=== PATIENT | male | born 1960 | race Caucasian/White ===

== ENCOUNTER 2021-11-04 07:27 | Outpatient (REF) | payer MEDICARE, SELFPAY ==
[2021-11-04 11:47] LABS: Alanine Aminotransferase 25 U/L (0-40); Albumin Level 4.3 g/dL (3.5-5.0); Alkaline Phosphatase 58 U/L (39-117); Aspartate Amino Transferase 20 U/L (5-37); Bilirubin Direct 0.3 mg/dL (0.0-0.5); Bilirubin Total 0.8 mg/dL (0.0-1.0); Cholesterol 161 mg/dL; HDL Cholesterol 54 mg/dL; LDL Cholesterol Calculated 88 mg/dl; Total Protein 6.8 g/dL (6.5-8.0); Triglycerides 98 mg/dL
== END 2021-11-04 07:28 | disposition home or self-care (01) ==
LOC: HO.WFDLDS 07:27
PROVIDERS: Visit Provider Internal Medicine
DX: E78.00 Pure hypercholesterolemia, unspecified (principal)
CPT/HCPCS: 36415; 80061; 80076

== ENCOUNTER 2022-06-15 07:36 | Outpatient (REF) | payer MEDICARE, SELFPAY ==
[2022-06-15 11:39] LABS: MANUAL DIFF FLAG NO
[2022-06-15 11:42] LABS: Appearance Urine Clear; Color Urine Dark Yellow; Glucose Urine UA Negative (Negative); Leukocyte Esterase Urine Negative (Negative); Nitrite Urine Negative (Negative); PH 5.5 (5.0-9.0); Specific Gravity - Urine 1.025 (1.005-1.025); Urine Blood Negative (Negative); Urine Ketones Trace mg/dL (Negative); Urine Protein Trace mg/dL (Neg-Trace)
[2022-06-15 11:56] LABS: Basophils Absolute Auto 0.1 X10*3/uL (0.0-0.2); Basophils Percent Auto 0.7 % (0-2); Eosinophils Absolute Auto 0.2 X10*3/uL (0.0-0.4); Hematocrit 47.1 % (42.0-52.0); Hemoglobin 15.3 g/dl (14.0-18.0); Imm Gran Abs Auto 0.02 X10*3/uL (0.00-0.03); Imm Gran Pct Auto 0.3 % (0.0-0.4); Lymphocytes Percent Auto 25.9 % (20-40); Mean Corpuscular HGB Conc 32.5 g/dl (31.0-36.0); Mean Corpuscular Hemoglobin 30.7 pg (27.0-33.0); Mean Corpuscular Volume 94.6 fL (80.0-98.0); Mean Platelet Volume 12.1 fL (9.4-12.4); Monocytes Absolute Auto 0.6 X10*3/uL (0.1-1.2); Monocytes Percent Auto 7.7 % (2-11); Neutrophils Absolute Auto 4.8 x10*3/uL (2.0-8.3); Neutrophils Percent Auto 63.4 % (45-73); Platelet Count 224 X10*3/uL (160-400); Red Blood Count 4.98 X10*6/uL (4.60-5.80); Red Cell Distribution Width 12.3 % (11.0-16.0); White Blood Count 7.5 X10*3/uL (4.8-10.8)
[2022-06-15 12:29] LABS: Alanine Aminotransferase 25 U/L (0-40); Albumin Level 4.2 g/dL (3.5-5.0); Alkaline Phosphatase 55 U/L (39-117); Anion Gap 10 (12-20); Aspartate Amino Transferase 20 U/L (5-37); Bilirubin Total 0.8 mg/dL (0.0-1.0); Blood Urea Nitrogen 18 mg/dL (9-16); Calcium 9.3 mg/dL (8.4-10.2); Carbon Dioxide 30 mmol/L (22-29); Chloride 104 mmol/L (96-108); Cholesterol 171 mg/dL; Estimated Glomerular Filt Rate > 60; Glucose Fasting 101 mg/dL (60-99); HDL Cholesterol 48 mg/dL; LDL Cholesterol Calculated 96 mg/dl; Potassium 4.2 mmol/L (3.3-5.1); Sodium 140 mmol/L (135-145); Total Protein 6.5 g/dL (6.5-8.0); Triglycerides 139 mg/dL
== END 2022-06-15 07:37 | disposition home or self-care (01) ==
LOC: HO.WFDLDS 07:36
PROVIDERS: Visit Provider Internal Medicine
DX: Z00.00 Encounter for general adult medical examination without abnormal findings (principal); I10 Essential (primary) hypertension; E78.00 Pure hypercholesterolemia, unspecified; Z12.5 Encounter for screening for malignant neoplasm of prostate
CPT/HCPCS: 36415; 80053; 80061; 81003; 84153; 85025

== ENCOUNTER 2022-12-30 07:19 | Outpatient (REF) | payer MEDICARE, SELFPAY ==
[2022-12-30 15:29] LABS: Alanine Aminotransferase 26 U/L (0-40); Albumin Level 4.2 g/dL (3.5-5.0); Alkaline Phosphatase 54 U/L (39-117); Aspartate Amino Transferase 23 U/L (5-37); Bilirubin Direct 0.2 mg/dL (0.0-0.5); Bilirubin Total 0.5 mg/dL (0.0-1.0); Total Protein 6.9 g/dL (6.5-8.0)
[2022-12-30 15:33] LABS: Cholesterol 161 mg/dL; HDL Cholesterol 59 mg/dL; LDL Cholesterol Calculated 85 mg/dl; Triglycerides 89 mg/dL
[2022-12-30 19:52] LABS: Reflex LDLD? No
== END 2022-12-30 07:20 | disposition home or self-care (01) ==
LOC: HO.WFDLDS 07:19
PROVIDERS: Visit Provider Internal Medicine
DX: E78.00 Pure hypercholesterolemia, unspecified (principal)
CPT/HCPCS: 36415; 80061; 80076

== ENCOUNTER 2023-07-10 07:22 | Outpatient (REF) | payer MEDICARE, SELFPAY ==
[2023-07-10 11:25] LABS: MANUAL DIFF FLAG NO
[2023-07-10 11:45] LABS: Appearance Urine Clear; Color Urine Yellow; Glucose Urine UA Negative (Negative); Leukocyte Esterase Urine Negative (Negative); Nitrite Urine Negative (Negative); PH 6.5 (5.0-9.0); Specific Gravity - Urine 1.025 (1.005-1.025); Urine Blood Negative (Negative); Urine Ketones Trace mg/dL (Negative); Urine Protein Trace mg/dL (Neg-Trace)
[2023-07-10 11:51] LABS: Bacteria Urine None Seen (None Seen); Hyaline Casts Urine 0-2 /LPF (0-2); RBC Urine 0-2 /HPF (0-2); Squamous Epithelial Cell Urine 0-2 /HPF (0-2); WBC Urine 0-5 /HPF (0-5)
[2023-07-10 12:03] LABS: Basophils Percent Auto 0.6 % (0-2); Eosinophils Absolute Auto 0.1 X10*3/uL (0.0-0.4); Eosinophils Percent Auto 2.2 % (0-4); Hematocrit 43.9 % (42.0-52.0); Imm Gran Abs Auto 0.01 X10*3/uL (0.00-0.03); Imm Gran Pct Auto 0.2 % (0.0-0.4); Lymphocytes Absolute Auto 1.7 X10*3/uL (1.2-4.9); Lymphocytes Percent Auto 26.6 % (20-40); Mean Corpuscular HGB Conc 34.2 g/dl (31.0-36.0); Mean Corpuscular Hemoglobin 31.8 pg (27.0-33.0); Mean Platelet Volume 11.9 fL (9.4-12.4); Monocytes Absolute Auto 0.5 X10*3/uL (0.1-1.2); Monocytes Percent Auto 8.1 % (2-11); Neutrophils Absolute Auto 3.9 x10*3/uL (2.0-8.3); Neutrophils Percent Auto 62.3 % (45-73); Platelet Count 210 X10*3/uL (160-400); Red Blood Count 4.72 X10*6/uL (4.60-5.80); Red Cell Distribution Width 12.3 % (11.0-16.0); White Blood Count 6.3 X10*3/uL (4.8-10.8)
[2023-07-10 12:39] LABS: Alanine Aminotransferase 24 U/L (0-40); Albumin Level 4.1 g/dL (3.5-5.0); Alkaline Phosphatase 67 U/L (39-117); Anion Gap 14 (12-20); Aspartate Amino Transferase 19 U/L (5-37); Bilirubin Total 0.6 mg/dL (0.0-1.0); Blood Urea Nitrogen 20 mg/dL (9-16); Calcium 9.2 mg/dL (8.4-10.2); Carbon Dioxide 28 mmol/L (22-29); Chloride 109 mmol/L (96-108); Cholesterol 164 mg/dL (<200); Estimated Glomerular Filt Rate > 60; Glucose Fasting 101 mg/dL (60-99); HDL Cholesterol 60 mg/dL (>40); LDL Cholesterol Calculated 83 mg/dL (<100); Potassium 3.7 mmol/L (3.3-5.1); Sodium 147 mmol/L (135-145); Total Protein 6.8 g/dL (6.5-8.0); Triglycerides 106 mg/dL (<150)
[2023-07-11 12:03] LABS: Free Prostate Spec Ag 0.2 ng/mL; Percent Free Prostate Spec Ag 29 % (calc) (>25); Prostate Specific Ag Total 0.7 ng/mL (< OR = 4.0)
== END 2023-07-10 07:23 | disposition home or self-care (01) ==
LOC: HO.WFDLDS 07:22
PROVIDERS: Visit Provider Internal Medicine
DX: Z00.00 Encounter for general adult medical examination without abnormal findings (principal); I10 Essential (primary) hypertension; E78.00 Pure hypercholesterolemia, unspecified
CPT/HCPCS: 36415; 80053; 80061; 81001; 84154; 85025

== ENCOUNTER 2024-07-18 08:29 | Outpatient (REF) | payer MEDICARE, SELFPAY ==
--- OUTSIDE RECORDS SUMMARY | 2024-07-18 08:55 | XMS_ITS ---
Author Organization Braden Leon MD Address [address] [place] [phone] Care Team Providers Care Animal Husbandry Teacher Name Role Phone Braden Leon Primary Care Provider [phone] REASON FOR VISIT yearly fasting labs Encounters Encounter Location Date Provider Diagnosis Braden Leon MD [address] [place] [phone] 07/12/2024 Braden Leon Blood tests for rout ine general physical examination Z00.00 ; Essential hypertension I10 and Pure hypercholesterolemia E78.00 Assessments Encounter Date Diagnosis (ICD Code) Assessment Notes Treatment Notes Treatment Clinical Notes Section Notes 07/12/2024 Blood tests for rout ine general physical examination (ICD-10 - Z00.00) 07/12/2024 Essential hypertensi on (ICD-10 - I10) 07/12/2024 Pure hypercholesterolemia (ICD-10 - E78.00) Plan Of Treatment Pending Test Test Name Order Date Complete Blood Count Auto Diff 5 Comprehensive [place]. Panel Fast 5 Lipid Panel 07/12/2024 PSA,Total (Free>4and<10) 07/12/2024 UA ClnCatch+Micro w/rflx Cult 07/12/2024 Next Appt Details Provider Name:Braden Medrano ier, 07/19/2024 08:00:00 AM, [address], [address], [place], [place], [phone], Progress Notes * Phillip LOERA TDOB:[birth year] (64 yo M)Acc No.[id number]:07/12/2024 Progress Note Patient:?Phillip LOERA Provider:?Braden Leon MD :1960???Age:64 Y???Sex:Male Patrick e:07/12/2024 Address:[address] [place], [place] [phone] Subjective: * Chief Complaints: * ???1. Yearly fasting labs. * Medical History:? Objective: * Vitals:? Assessment: * Assessment: 1.?Blood tests for routine g eneral physical examination - Z00.00 (Primary)???2.?Essential hypertension - I10???3.?Pure hypercholesterolemia - E78.00??? Plan: * Treatment: 2.?Essential hypertension?LAB: Complete Blood Count Auto Diff ?LAB: Comprehensive [place]. Panel Fast ?LAB: Lipid Panel ?LAB: PSA,Total (Free>4and<10) ?LAB: UA ClnCatch+Micro w/rflx Cult 3.?Pure hypercholesterolemia ?LAB: Complete Blood Count Auto Diff ?LAB: Comprehensive [place]. Panel Fast ?LAB: Lipid Panel ?LAB: PSA,Total (Free>4and<10) ?LAB: UA ClnCatch+Micro w/rflx Cult * * The named appointment provid er may or may not be the originator of this progress note, and it is not deemed complete until electronically signed by the appointment provider. Sign off status: Pending * Provider:?Braden Leon MD Date:?0 07/12/2024 Generated for Hodai nicole/Pasquale/eTransmitting on:?07/18/2024 08:55 AM EST
--- OUTSIDE RECORDS SUMMARY | 2024-07-18 08:55 | XMS_ITS ---
Author Organization Braden Leon MD Address [address] [place] [phone] Care Team Providers Care Electrician Machine Shop Name Role Phone Braden Leon Primary Care Provider REASON FOR VISIT fasting lipids Encounters Encounter Location Date Provider Diagnosis Braden Leon MD [address] [place] [address] [address] [place] [phone] 01/01/2024 Braden Leon Pure hypercholestero lemia E78.00 Assessments Encounter Date Diagnosis (ICD Code) Assessment Notes Treatment Notes Treatment Clinical Notes Section Notes 01/01/2024 Pure hypercholesterolemia (ICD-10 - E78.00) Plan Of Treatment Next Appt Details Provider Name:Braden Medrano ier, 07/19/2024 08:00:00 AM, [address] [facility], [address], [place], [place], [phone], Progress Notes * Phillip LOERA TDOB:[birth year] (64 yo M)Acc No.[id number]:01/01/2024 Progress Note Patient:?Phillip LOERA Provider:?Braden Leon MD :1960???Age:63 Y???Sex:Male Patrick e:01/01/2024 Address:[address] [place], [place] [phone] Subjective: * Chief Complaints: * ???1. Fasting lipids. * Medical History:? Objective: * Vitals:? Assessment: * Assessment: 1.?Pure hypercholesterolemia - E78.00??? Plan: * Treatment: * * The named appointment provid er may or may not be the originator of this progress note, and it is not deemed complete until electronically signed by the appointment provider. Sign off status: Pending * Provider:?Braden Leon MD Date:?0 01/01/2024 Generated for Rosalva rivera/Pasquale/Jessicaitting on:?07/18/2024 08:54 AM EST
--- OUTSIDE RECORDS SUMMARY | 2024-07-18 08:55 | XMS_ITS ---
Author Organization Braden Leon MD Address [address] [place] [phone] Care Team Providers Care Logistics Supervisor Name Role Phone Braden Leon Primary Care Provider [phone] Allergies No Known Allergies REASON FOR VISIT 6 month / BP Encounters Encounter Location Date Provider Diagnosis Braden Leon MD [address] [place] [phone] 01/08/2024 Braden Leon Plan Of Treatment Next Appt Details Provider Name:Braden Medrano ier, 07/19/2024 08:00:00 AM, [address], [address], [place], [place], [phone], Progress Notes * Phillip LOERA TDOB:[birth year] (64 yo M)Acc No.[id number]:01/08/2024 Progress Notes Patient:?Phillip LOERA Provider:?Braden Leon MD :1960???Age:63 Y???Sex:Male Patrick e:01/08/2024 Address:[address] [place], [place] [phone] Subjective: * Chief Complaints: * ???1. 6 month / BP. * ROS:?General/Constitutional:?Denies?Chills.?Denies?Fatigue.?Denies?Fever.?Denies?Headache.?ENT:?Denies?Sore throat.?Respiratory:?Denies?Cough.?Denies?Shortness of breath at rest.?Denies?Shortness of breath with exertion.?Gastrointestinal:?Denies?Diarrhea.?Denies?Nausea.? * Medical History:?Hyppertensi on, Hypercholesterol, Had est with mibi 4 mo after mi., 08/01/13, refuses flu vac, Smoker, Discussed colonoscopy 2014, Refused cologuard 06/24/2019, Doesn't want the yearly cat scan of chest because doesn't want to go to [facility], Refused colonoscopy and cologard 2022. * Allergies:?N.K.D.A. Objective: * Vitals:? Assessment: Plan: * Treatment: * * The named appointment provid er may or may not be the originator of this progress note, and it is not deemed complete until electronically signed by the appointment provider. Sign off status: Pending * Provider:?Braden Leon MD Date:?0 01/08/2024 Generated for Rosalva rivera/Pasquale/Jessicaitting on:?07/18/2024 08:55 AM EST
[2024-07-18 12:19] LABS: Alanine Aminotransferase 34 U/L (0-40); Albumin Level 4.2 g/dL (3.5-5.0); Alkaline Phosphatase 59 U/L (39-117); Aspartate Amino Transferase 31 U/L (5-37); Bilirubin Direct 0.3 mg/dL (0.0-0.5); Bilirubin Total 0.7 mg/dL (0.0-1.0); Cholesterol 172 mg/dL (<200); HDL Cholesterol 59 mg/dL (>40); LDL Cholesterol Calculated 93 mg/dL (<100); Total Protein 7.3 g/dL (6.5-8.0); Triglycerides 101 mg/dL (<150)
[2024-07-18 12:26] LABS: Reflex LDLD? No
== END 2024-07-18 08:30 | disposition home or self-care (01) ==
LOC: HO.WFDLDS 08:29
PROVIDERS: Visit Provider Internal Medicine
DX: E78.00 Pure hypercholesterolemia, unspecified (principal)
CPT/HCPCS: 36415; 80061; 80076

== ENCOUNTER 2024-07-19 10:35 | Outpatient (REF) | payer MEDICARE, SELFPAY ==
[2024-07-19 10:38] LABS: MANUAL DIFF FLAG NO
[2024-07-19 11:15] LABS: Basophils Percent Auto 0.4 % (0-2); Eosinophils Absolute Auto 0.2 X10*3/uL (0.0-0.4); Eosinophils Percent Auto 2.7 % (0-4); Hematocrit 46.2 % (42.0-52.0); Hemoglobin 15.5 g/dl (14.0-18.0); Imm Gran Abs Auto 0.02 X10*3/uL (0.00-0.03); Imm Gran Pct Auto 0.3 % (0.0-0.4); Lymphocytes Absolute Auto 1.3 X10*3/uL (1.2-4.9); Lymphocytes Percent Auto 19.6 % (20-40); Mean Corpuscular HGB Conc 33.5 g/dl (31.0-36.0); Mean Corpuscular Hemoglobin 31.7 pg (27.0-33.0); Mean Corpuscular Volume 94.5 fL (80.0-98.0); Monocytes Absolute Auto 0.5 X10*3/uL (0.1-1.2); Monocytes Percent Auto 6.6 % (2-11); Neutrophils Absolute Auto 4.8 x10*3/uL (2.0-8.3); Neutrophils Percent Auto 70.4 % (45-73); Platelet Count 208 X10*3/uL (160-400); Red Blood Count 4.89 X10*6/uL (4.60-5.80); Red Cell Distribution Width 12.2 % (11.0-16.0); White Blood Count 6.8 X10*3/uL (4.8-10.8)
[2024-07-19 11:16] LABS: Appearance Urine Clear; Color Urine Dark Yellow; Glucose Urine UA Negative (Negative); Leukocyte Esterase Urine Trace (Negative); Nitrite Urine Negative (Negative); Specific Gravity - Urine >= 1.030 (1.005-1.025); UMIC TRIGGER UACC YES; Urine Blood Negative (Negative); Urine Ketones Trace mg/dL (Negative); Urine Protein 100 (2+) mg/dL (Neg-Trace)
--- OUTSIDE RECORDS SUMMARY | 2024-07-19 11:33 | XMS_ITS ---
Author Organization Braden Leon MD Address [address] [place], [place] [phone] Care Team Providers Care Spot Billing Clerk Name Role Phone Braden Leon Primary Care Provider Results Component Value Reference Range Notes Complete Blood Count Auto Di ff (Not yet reviewed by provider) Interpretation: Performing Lab:[facility], [address] [place] [id number] Notes/Report: White Blood Count 6.8 4.8-10.8 X10*3/uL Red Blood Count 4.89 4.60-5.80 X10*6/uL Hemoglobin 15.5 14.0-18.0 g/dl Hematocrit 46.2 42.0-52.0 % Mean Corpuscular Volume 94.5 80.0-98.0 fL Mean Corpuscular Hemoglobin 31.7 27.0-33.0 pg Mean Corpuscular HGB Conc 33.5 31.0-36.0 g/dl Red Cell Distribution Width 12.2 11.0-16.0 % Platelet Count 208 160-400 X10*3/uL Mean Platelet Volume 12.0 9.4-12.4 fL Neutrophils Percent Auto 70.4 45-73 % Imm Gran Pct Auto 0.3 0.0-0.4 % Lymphocytes Percent Auto 19.6 20-40 % Monocytes Percent Auto 6.6 2-11 % Eosinophils Percent Auto 2.7 0-4 % Basophils Percent Auto 0.4 0-2 % NRBC Pct Auto 0.0 0.0-0.2 /100WBC Neutrophils Absolute Auto 4.8 2.0-8.3 x10*3/u L Imm Gran Abs Auto 0.02 0.00-0.03 X10*3/uL Lymphocytes Absolute Auto 1.3 1.2-4.9 X10*3/u L Monocytes Absolute Auto 0.5 0.1-1.2 X10*3/uL Eosinophils Absolute Auto 0.2 0.0-0.4 X10*3/u L Basophils Absolute Auto 0.0 0.0-0.2 X10*3/uL NRBC Abs Auto 0.000 0.0-0.012 X10*3/uL REASON FOR VISIT yearly fasting labs Encounters Encounter Location Date Provider Diagnosis Braden Leon MD [address] [place] [address] [place] [phone] 07/19/2024 Braden Leon Blood tests for rout ine general physical examination Z00.00 ; Essential hypertension I10 and Pure hypercholesterolemia E78.00 Assessments Encounter Date Diagnosis (ICD Code) Assessment Notes Treatment Notes Treatment Clinical Notes Section Notes 07/19/2024 Blood tests for rout ine general physical examination (ICD-10 - Z00.00) 07/19/2024 Essential hypertensi on (ICD-10 - I10) 07/19/2024 Pure hypercholesterolemia (ICD-10 - E78.00) Plan Of Treatment Pending Test Test Name Order Date Complete Blood Count Auto Diff 5 Comprehensive [place]. Panel Fast 5 Lipid Panel 07/19/2024 PSA,Total (Free>4and<10) 07/19/2024 UA ClnCatch+Micro w/rflx Cult 07/19/2024 Next Appt Details Provider Name:Braden brock, 01/10/2025 07:45:00 AM, [address] [place] [address], Suite [facility], [place], [place], [phone], Provider Name:Braden brock, 01/16/2025 07:45:00 AM, [address] [place] [address], [address], [phone], Provider Name:Braden brock, 07/17/2025 07:30:00 AM, [address] [place] [address], [place] [address], [place], [place], [phone], Provider Name:Braden brock, 07/24/2025 08:00:00 AM, [address] [facility], [address], [place], [place], [phone], Progress Notes * Phillip LOERA TDOB:[birth year] (64 yo M)Acc No.[id number]:07/19/2024 Progress Note Patient:?Phillip LOERA Provider:?Braden Leon MD :1960???Age:64 Y???Sex:Male Patrick e:07/19/2024 Address:[address] [place], [place] [phone] Subjective: * Chief Complaints: * ???1. Yearly fasting labs. * Medical History:? Objective: * Vitals:? Assessment: * Assessment: 1.?Blood tests for routine g eneral physical examination - Z00.00 (Primary)???2.?Essential hypertension - I10???3.?Pure hypercholesterolemia - E78.00??? Plan: * Treatment: 2.?Essential hypertension?LAB: Complete Blood Count Auto Diff (Collection Date & Time - 07/19/2024 09:00 AM) ?LAB: Comprehensive [place]. Panel Fast ?LAB: Lipid Panel ?LAB: PSA,Total (Free>4and<10) ?LAB: UA ClnCatch+Micro w/rflx Cult 3.?Pure hypercholesterolemia ?LAB: Complete Blood Count Auto Diff (Collection Date & Time - 07/19/2024 09:00 AM) ?LAB: Comprehensive [place]. Panel Fast ?LAB: Lipid Panel ?LAB: PSA,Total (Free>4and<10) ?LAB: UA ClnCatch+Micro w/rflx Cult * * The named appointment provid er may or may not be the originator of this progress note, and it is not deemed complete until electronically signed by the appointment provider. Sign off status: Pending * Provider:?Braden Leon MD Date:?0 07/19/2024 Generated for Rosalva rivera/Pasquale/Jessicaitting on:?07/19/2024 11:33 AM EST
--- OUTSIDE RECORDS SUMMARY | 2024-07-19 11:33 | XMS_ITS | Clinical Summary ---
Author Organization [facility] Address [address] [place] [address] Care Team Providers Care Reach Truck Operator Name Role Phone Braden Leon MD Primary Care Provider Family History Medical History Relation Comments Hypertension Mother Relation Status Comments Father Mother Alive Social History Tobacco Use Types Packs/Day Years Used Date Smoking Tobacco: Former Cigarettes Q uit: 05/29/2010 Comments:Smoking History Inf o:Every day Alcohol Use Standard Drinks/Week Comments Yes 0 (1 standard drink = 0.6 oz pure alcohol) Alcoholic Drinks/day: Occasional social drink Sex and Gender Information Value Date Recorded Sex Assigned at Not on file Legal Sex Male 4:45 PM EST Gender Identity Not on file Sexual Orientation Not on file Last Filed Vital Signs Vital Sign Reading Time Taken Comments Blood Pressure 130/80 06/12/2019 12:01 PM EST Pulse 72 06/12/2019 12:01 PM EST Temperature - - Respiratory Rate - - Oxygen Saturation - - Inhaled Oxygen Concentration - - Weight 95.7 kg (211 lb) 06/12/2019 12:01 PM EST Height 180.3 cm (5' 11 ) 06/12/2019 12:01 PM EST Body Mass Index 29.43 06/12/2019 12:01 PM EST Plan of Treatment Health Maintenance Due Date Last Done Comments Pneumococcal Vaccine: Pediat rics (0 to 5 Years) and At-Risk Patients (6 to 64 Years) (1 of 2 - PCV) 02/22/1968 Colorectal Cancer Screening: Annual FOBT 2011 Colorectal Cancer Screening: Colonoscopy 2011 Colorectal Cancer Screening: Sigmoidoscopy 2011 Influenza Vaccine (#1) 2024 Hepatitis B Vaccine Aged Out No longe r eligible based on patient's age to complete this topic Care Teams Reach Truck Operator Relationship Specialty Start Date End Date Braden Leon MD [address] [place] [address] [id number] [place], [place] PCP - General 06/08/20
--- OUTSIDE RECORDS SUMMARY | 2024-07-19 11:33 | XMS_ITS ---
Author Organization Braden Leon MD Address [address] [place] [phone] Care Team Providers Care Meat Cutter Apprentice Name Role Phone Braden Leon Primary Care Provider Allergies No Known Allergies REASON FOR VISIT annual visit Medications Medication SIG (Take, Route, Frequency, Duration) Notes Start Date End Date Status Sildenafil Citrate 100 MG TAKE TWO TABLE TS BY MOUTH ONCE A DAY NEEDED for 30 Active amLODIPine Besylate 10 mg TAKE 1 TABLET DAILY Active Irbesartan-hydroCHLOROthi azide 300-12.5 mg TAKE 1 TABLET DAILY Act danika Cialis 20 MG 1 tablet Orally Once a day for 6 Not-Taking Viagra 50 MG 1 tablet as needed Orally Once a day for 30 day(s) 05/12/2016 Not-Taking Atorvastatin Calcium 80 mg TAKE 1 TABLET DAILY Active Tadalafil 20 MG take one tablet by mouth every day Orally Once a day Active Omeprazole 20 mg TAKE 1 CAPSULE DAILY Active hydrALAZINE HCl 50 mg TAKE 1 TABLET TWIC E A DAY Active Metoprolol Tartrate 100 mg TAKE 1 TABLET TWICE A DAY Active Aspirin Adult Low Strength 81 MG 1 tablet Orally Once a day Active Social History Tobacco Use: Social History Observation Description Date Details (start date - stop date) Former Smoker NA - NA Tobacco Use/Smoking Question Answer Notes Patient is a former smoker How long has it been since y ou last smoked? > 10 years Additional Findings: Tobacco Non-User Fo rmer smoker, currently using no form of tobacco AUDIT-C (Standard) Question Answer Notes Did you have a drink contain ing alcohol in the past year? Yes How often did you have a dri nk containing alcohol in the past year? 2 to 4 times a month (2 points) How many drinks did you have on a typical day when you were drinking in the past year? 1 or 2 drinks (0 point) How often did you have six o r more drinks on one occasion in the past year? Never (0 point) [place] 2 Interpretation Negative Vital Signs Blood pressure systolic 138 mm Hg 07/19/19 25 Blood pressure diastolic 80 mm Hg 025 Height 70 in 07/19/2024 Weight 210 lbs 07/19/2024 BMI 30.13 kg/m2 07/19/2024 weight is down 3 pounds [facility] e 10-19-23 Encounters Encounter Location Date Provider Diagnosis Braden Leon MD [address] [place] [address] [place] [phone] 07/19/2024 Braden Leon Pure hypercholestero lemia E78.00 and Atherosclerosis of [place] coronary artery of [place] heart without angina pectoris I25.10 Assessments Encounter Date Diagnosis (ICD Code) Assessment Notes Treatment Notes Treatment Clinical Notes Section Notes 07/19/2024 Pure hypercholesterolemia (ICD-10 - E78.00) 07/19/2024 Atherosclerosis of [place] coronary artery of [place] heart without angina pectoris (ICD-10 - I25.10) doing great Plan Of Treatment Treatment Notes Assessment Notes Atherosclerosis of [place] co ronary artery of [place] heart without angina pectoris doing great Next Appt Details Follow Up: 6 Months, Reason: Provider Name:Braden brock, 01/10/2025 07:45:00 AM, [address] [place] [address], [address], [id number], Provider Name:Braden brock, 01/16/2025 07:45:00 AM, [address] [place] [address], [address], [phone], Provider Name:Braden brock, 07/17/2025 07:30:00 AM, [address] [place] [address], [address], [phone], Provider Name:Braden brock, 07/24/2025 08:00:00 AM, [address] [place] [address], [address], [phone], Progress Notes * Phillip LOERA TDOB:[birth year] (64 yo M)Acc No.[id number]:07/19/2024 Progress Notes Patient:?Phillip LOERA Provider:?Braden Leon MD :1960???Age:64 Y???Sex:Male Patrick e:07/19/2024 Address:[address] [place] [address] Subjective: * Chief Complaints: * ???1. Annual visit. * HPI: ???Depression Screening:?PHQ-9?Little interest or pleasure in doing things?Not at all,?Feeling down, depressed, or hopeless?Not at all,?Trouble falling or staying asleep, or sleeping too much?Not at all,?Feeling tired or having little energy?Not at all,?Poor appetite or overeating?Not at all,?Feeling bad about yourself or that you are a failure, or have let yourself or your family down?Not at all,?Trouble concentrating on things, such as reading the newspaper or watching television?Not at all,?Moving or speaking so slowly that other people could have noticed; or the opposite, being so fidgety or restless that you have been moving around a lot more than usual?Not at all,?Thoughts that you would be better off or of hurting yourself in some way?Not at all,?Total Score?0.?Communication Needs:?Communication Needs?Does the patient have a hearing impairment?No,?Does the patient have a vision impairment??Yes,?If yes, what is the vision impairment??Glasses,?Does the patient have a cognition impairment??No.?SDOH Questions:?SDOH Questions?In the past year have you been worried about losing housing??No,?In the past year have you or any family members you live with been unable to get any of the following when it was really needed? Check all that apply:?None.? * ROS:?General/Constitutional:?Change in appetite?denies.?Chills?denies.?Fever?denies.?Ophthalmologic:?Blurred vision?denies.?Discharge?denies.?Pain?denies.?ENT:?Decreased hearing?denies.?Sore throat?denies.?Swollen glands?denies.?Endocrine:?Cold intolerance?denies.?Excessive thirst?denies.?Heat intolerance?denies.?Weight loss?denies.?Respiratory:?Cough?denies.?Shortness of breath at rest?denies.?Shortness of breath with exertion?denies.?Wheezing?denies.?Cardiovascular:?Chest pain at rest?denies.?Chest pain with exertion?denies.?Irregular heartbeat?denies.?Shortness of breath?denies.?Gastrointestinal:?Abdominal pain?denies.?Change in bowel habits?denies.?Diarrhea?denies.?Nausea?denies.?Rectal bleeding?denies.?Vomiting?denies .?Genitourinary:?Blood in urine?denies.?Difficulty urinating?denies.?Frequent urination?denies.?Musculoskeletal:?Painful joints?denies.?Weakness?denies.?Skin:?Dry skin?denies.?Itching?denies.?Denies?Mole(s),? changes in moles, new moles or any lesions of concern.?Denies?Photosensitivity.?Rash?denies.?Neurologic:?Dizziness?denies.?Fainting?denies.?Headache?denies.? * Medical History:?Hyppertensi on, Hypercholesterol, Had est with mibi 4 mo after mi., 08/01/13, refuses flu vac, Smoker, Discussed colonoscopy 2014, Refused cologuard 06/24/2019, Doesn't want the yearly cat scan of chest because doesn't want to go to [facility], Refused colonoscopy and cologard 2022. * Family History:?Father: dece ased 85 yrs, diagnosed with Cancer.?Mother: 86 yrs, diagnosed with Hypertension.?1 brother(s) , 2 sister(s) . .? Father esophageal Cancer, No pertinent family medical history, Denies mental health/substance abuse family history, Denies mental health/substance abuse family history, Denies mental health/substance abuse family history, Denies mental health/substance abuse family history. * Social History:?Tobacco Use:?Tobacco Use/Smoking?Patient is a?former smoker,?How long has it been since you last smoked??> 10 years,?Additional Findings: Tobacco Non-User?Former smoker, currently using no form of tobacco.?Miscellaneous:?Caffeine: yes, frequency:1/2 CUP. Children: no. Community involvements: no. Exercise: yes, walking 15 minues a day. Home smoke detector use: yes. Housing: owning. Living with: significant other. Marital status: single. Occupation: works full-time. Pets: none. Travel outside of the [place]: no. ???Household:?Household?Marital status:?single,?Number of adults in household:?2,?Number of children in household:?0,?Hindu:?none,?Level of education:?not finished college,?Family yearly income:?sufficent.?Drug/Alcohol:?AUDIT-C (Standard)?Did you have a drink containing alcohol in the past year??Yes,?How often did you have a drink containing alcohol in the past year??2 to 4 times a month (2 points),?How many drinks did you have on a typical day when you were drinking in the past year??1 or 2 drinks (0 point),?How often did you have six or more drinks on one occasion in the past year??Never (0 point),?Points?2,?Interpretation?Negative.? * Medications:?Taking Aspirin Adult Low Strength 81 MG Tablet Delayed Release 1 tablet Orally Once a day , Taking Tadalafil 20 MG Tablet take one tablet by mouth every day Orally Once a day , Taking hydrALAZINE HCl 50 mg Tablet TAKE 1 TABLET TWICE A DAY , Taking Omeprazole 20 mg Capsule Delayed Release TAKE 1 CAPSULE DAILY , Taking Metoprolol Tartrate 100 mg Tablet TAKE 1 TABLET TWICE A DAY , Taking Atorvastatin Calcium 80 mg Tablet TAKE 1 TABLET DAILY , Taking Sildenafil Citrate 100 MG Tablet TAKE TWO TABLETS BY MOUTH ONCE A DAY NEEDED , Taking Irbesartan-hydroCHLOROthiazide 300-12.5 mg Tablet TAKE 1 TABLET DAILY , Taking amLODIPine Besylate 10 mg Tablet TAKE 1 TABLET DAILY , Not-Taking/PRN Viagra 50 MG Tablet 1 tablet as needed Orally Once a day , Not-Taking/PRN Cialis 20 MG Tablet 1 tablet Orally Once a day , Medication List reviewed and reconciled with the patient * Allergies:?N.K.D.A. Objective: * Vitals:?Ht: 70, Wt: 210, BMI :30.13, BP:138/80, Wt-k.26. weight is down 3 pounds since 10-19-23. * ???Past Orders: ???Lab:Liver Panel (Order Da te - 07/18/2024) (Collection Date & Time - 07/18/2024 08:33 AM) ? Value Reference Range ?Bilirubin Total 0.7 0.0- 1.0 - mg/dL ?Bilirubin Direct 0.3 0.0 -0.5 - mg/dL ?Aspartate Amino Transferase 31 5-37 - U/L ?Alanine Aminotransferase 34 0-40 - U/L ?Total Protein 7.3 6.5-8. 0 - g/dL ?Albumin Level 4.2 3.5-5. 0 - g/dL ?Alkaline Phosphatase 59 39-117 - U/L ???Lab:Lipid Panel with Refl ex (Order Date - 07/18/2024) (Collection Date & Time - 07/18/2024 08:33 AM) ? Value Reference Range ?Triglycerides 101 <150 - mg/dL ?Cholesterol 172 <200 - m g/dL ?LDL Cholesterol Calculated 93 <100 - mg/dL ?HDL Cholesterol 59 >40 - mg/dL * Examination: ???General Examination: ?GENERAL APPEARANCE:?well developed, well nourished, in no acute distress.?HEAD:?normocephalic, atraumatic.?EYES:?pupils equal, round, reactive to light and accommodation, sclera non-icteric.?EARS:?normal.?ORAL CAVITY:?mucosa moist.?THROAT:?clear.?NECK/THYROID:?neck supple, full range of motion, no cervical lymphadenopathy, no bruits.?SKIN:?warm and dry, no suspicious lesions.?HEART:?regular rate and rhythm, S1, S2 normal, no murmurs.?LUNGS:?clear to auscultation bilaterally.?ABDOMEN:?soft, nontender, nondistended, bowel sounds present, normal, no organomegaly , no masses palpable.?RECTAL EXAM:?normal tone, no external hemorrhoids, no masses palpable, prostate normal, stool guaiac negative.?MALE GENITOURINARY:?circumcised, no penile lesions or discharge, no testicular mass, testes descended bilaterally.?EXTREMITIES:?no clubbing, cyanosis, or edema, abnormal with no dorsalis pedis on rt.?.?NEUROLOGIC:?nonfocal, motor strength normal upper and lower extremities, sensory exam intact.? Assessment: * Assessment: 1.?Pure hypercholesterolemia - E78.00 (Primary)???2.?Atherosclerosis of [place] coronary artery of [place] heart without angina pectoris - I25.10??? Plan: * Treatment: * Follow Up:?6 Months * * The named appointment provid er may or may not be the originator of this progress note, and it is not deemed complete until electronically signed by the appointment provider. Sign off status: Pending * Provider:?Braden Leon MD Date:?0 07/19/2024 Generated for Rosalva rivera/Pasquale/Megan on:?07/19/2024 11:32 AM EST History and Physical Notes * HPI (History of Present Illness) Category Sub-Category Detail Notes Category Not es Depression Screening PHQ-9 Little inte rest or pleasure in doing things: Not at all Feeling down, depressed, or hopeless: No t at all Trouble falling or staying asleep, or sl eeping too much: Not at all Feeling tired or having little energy: N ot at all Poor appetite or overeating: Not at all Feeling bad about yourself o r that you are a failure, or have let yourself or your family down: Not at all Trouble concentrating on thi ngs, such as reading the newspaper or watching television: Not at all Moving or speaking so slowly that other people could have noticed; or the opposite, being so fidgety or restless that you have been moving around a lot more than usual: Not at all Thoughts that you would be b ramiro off or of hurting yourself in some way: Not at all Total Score: 0 SDOH Questions SDOH Questions In the past year have you been worried about losing housing?: No In the past year have you or any family members you live with been unable to get any of the following when it was really needed? Check all that apply:: None Communication Needs Communication Needs Does the patient have a hearing impairment: No Does the patient have a vision impairmen t?: Yes ?If yes, what is the vision impairment?: Glasses Does the patient have a cognition impair ment?: No Examination Category Sub-Category Detail Notes Category Not es General Examination GENERAL APPEARANCE: well dev eloped, well nourished, in no acute distress HEAD: normocephalic, atrau matic EYES: pupils equal, round, reactive to light and accommodation, sclera non- icteric EARS: normal THROAT: clear NECK/THYROID: neck supple, full ra nge of motion, no cervical lymphadenopathy, no bruits HEART: regular rate and rhy thm, S1, S2 normal, no murmurs LUNGS: clear to auscultatio n bilaterally ABDOMEN: soft, nontender, non distended, bowel sounds present, normal, no organomegaly , no masses palpable NEUROLOGIC: nonfocal, motor stre ngth normal upper and lower extremities, sensory exam intact SKIN: warm and dry, no keshia picious lesions EXTREMITIES: no clubbing, cyanosi s, or edema, abnormal with no dorsalis pedis on rt. MALE GENITOURINARY: circumcised, no peni le lesions or discharge, no testicular mass, testes descended bilaterally RECTAL EXAM: normal tone, no exte rnal hemorrhoids, no masses palpable, prostate normal, stool guaiac negative ORAL CAVITY: mucosa moist
--- OUTSIDE RECORDS SUMMARY | 2024-07-19 11:33 | XMS_ITS ---
Author Organization Braden Leon MD Address [address] [facility] [address] [place] [phone] Care Team Providers Care Stripper Soft Plastic Name Role Phone Braden Leon Primary Care Provider [phone] Allergies No Known Allergies REASON FOR VISIT 6 month / BP Encounters Encounter Location Date Provider Diagnosis Braden Leon MD [address] [place] [address] [place] [phone] 01/08/2024 Braden Leon Plan Of Treatment Next Appt Details Provider Name:Braden brock, 01/10/2025 07:45:00 AM, [address] [place] [address], [address], [phone], Provider Name:Braden brock, 01/16/2025 07:45:00 AM, [address] [place] [address], [address], [phone], Provider Name:Braden brock, 07/17/2025 07:30:00 AM, [address] [place] [address], [address], [phone], Provider Name:Braden brock, 07/24/2025 08:00:00 AM, [address] [place] [address], [address], [phone], Progress Notes * Phillip LOERA TDOB:[birth year] (64 yo M)Acc No.[id number]:01/08/2024 Progress Notes Patient:?Phillip LOERA Provider:?Braden Leon MD :1960???Age:63 Y???Sex:Male Patrick e:01/08/2024 Address:[address] [place], [place] [phone] Subjective: * Chief Complaints: * ???1. 6 month / BP. * ROS:?General/Constitutional:?Denies?Chills.?Denies?Fatigue.?Denies?Fever.?Denies?Headache.?ENT:?Denies?Sore throat.?Respiratory:?Denies?Cough.?Denies?Shortness of breath at rest.?Denies?Shortness of breath with exertion.?Gastrointestinal:?Denies?Diarrhea.?Denies?Nausea.? * Medical History:?Hypperti on, Hypercholesterol, Had est with mibi 4 mo after mi., 08/01/13, refuses flu vac, Smoker, Discussed colonoscopy 2014, Refused cologuard 06/24/2019, Doesn't want the yearly cat scan of chest because doesn't want to go to [facility], Refused colonoscopy and cologard 2022. * Allergies:?N.K.D.A. Objective: * Vitals:? Assessment: Plan: * Treatment: * * The named appointment provid er may or may not be the originator of this progress note, and it is not deemed complete until electronically signed by the appointment provider. Sign off status: Pending * Provider:?Braden Leon MD Date:?0 01/08/2024 Generated for Rosalva rivera/Pasquale/eTadriaitting on:?07/19/2024 11:33 AM EST
[2024-07-19 11:49] LABS: Alanine Aminotransferase 33 U/L (0-40); Albumin Level 4.2 g/dL (3.5-5.0); Alkaline Phosphatase 57 U/L (39-117); Anion Gap 13 (12-20); Aspartate Amino Transferase 32 U/L (5-37); Bilirubin Total 0.9 mg/dL (0.0-1.0); Blood Urea Nitrogen 14 mg/dL (9-16); Calcium 9.3 mg/dL (8.4-10.2); Carbon Dioxide 26 mmol/L (22-29); Chloride 108 mmol/L (96-108); Estimated Glomerular Filt Rate > 60; Glucose Fasting 98 mg/dL (60-99); Potassium 3.6 mmol/L (3.3-5.1); Sodium 143 mmol/L (135-145); Total Protein 7.3 g/dL (6.5-8.0)
[2024-07-19 11:52] LABS: Bacteria Urine None Seen (None Seen); RBC Urine 0-2 /HPF (0-2); Squamous Epithelial Cell Urine 0-2 /HPF (0-2); WBC Urine 0-5 /HPF (0-5)
[2024-07-19 12:14] LABS: PSA,Total (Free>4and<10) 0.56 ng/mL (0.00-4.00)
== END 2024-07-19 10:36 | disposition home or self-care (01) ==
LOC: HO.LNP 10:35
PROVIDERS: Visit Provider Internal Medicine
DX: Z00.00 Encounter for general adult medical examination without abnormal findings (principal); I10 Essential (primary) hypertension; E78.00 Pure hypercholesterolemia, unspecified; Z12.5 Encounter for screening for malignant neoplasm of prostate
CPT/HCPCS: 80053; 81001; 84153; 85025

== ENCOUNTER 2025-01-15 07:49 | Outpatient (REF) | payer MEDICARE, SELFPAY ==
--- OUTSIDE RECORDS SUMMARY | 2025-01-15 07:51 | XMS_ITS | Clinical Summary ---
Author Organization [facility] Address [address] [place] [phone] Phone Care Team Providers Care Junior Sales Assistant Name Role Phone Braden Leon MD Primary Care Provider Social History Tobacco Use Types Packs/Day Years Used Date Smoking Tobacco: Never Assessed Education Answer Date Recorded Are you interested in more education? Not on estrella e 09/23/2022 Are you concerned about learning? Not on file 09/23/2022 No 09/23/2022 No 09/23/2022 Digital Access Answer Date Recorded No 10/25/2022 No 10/25/2022 Reliable internet access at home? Not on file 10/25/2022 Device with a working camera? Not on file Sex and Gender Information Value Date Recorded Sex Assigned at Not on file Legal Sex Male 8:55 AM EST Gender Identity Not on file Sexual Orientation Not on file Plan of Treatment Not on file Medical Devices Not on file Insurance [employer] O POS [facility] [employer] H[employer] POS [employer] POS [employer] POS [employer] POS [employer] HMO POS Care Teams Junior Sales Assistant Relationship Specialty Start Date End Date Braden Leon MD [address] [place] [address] [place] [address] PCP - General Internal Medicine 07/21/20 Additional Source Comments The information contained in this document represents components of the legal health record. It is not the complete legal health record.[facility]
--- OUTSIDE RECORDS SUMMARY | 2025-01-15 07:52 | XMS_ITS | Clinical Summary ---
Author Organization [facility] Address [address] [place] [id number] Care Team Providers Care Tableau Developer Name Role Phone Braden Leon MD Primary Care Provider [phone] Family History Medical History Relation Comments Hypertension [...] Due Date Last Done Comments Pneumococcal Vaccine: 50+ Ye ars (1 of 2 - PCV) 1981 Colorectal Cancer Screening: Annual FOBT 2011 Colorectal Cancer Screening: Colonoscopy 2011 Colorectal Cancer Screening: Sigmoidoscopy 2011 Influenza Vaccine (#1) 2025 Hepatitis B Vaccine Aged Out No longe r eligible based on patient's age to complete this topic Care Teams Tableau Developer Relationship Specialty Start Date End Date Braden Leon MD [address] [place], [place] [facility] - General 06/08/20
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
[2025-01-15 11:37] LABS: Alanine Aminotransferase 24 U/L (0-40); Albumin Level 4.5 g/dL (3.5-5.0); Alkaline Phosphatase 63 U/L (39-117); Aspartate Amino Transferase 26 U/L (5-37); Cholesterol 170 mg/dL (<200); HDL Cholesterol 53 mg/dL (>40); Total Protein 7.0 g/dL (6.5-8.0); Triglycerides 126 mg/dL (<150)
[2025-01-15 12:25] LABS: Reflex LDLD? No
== END 2025-01-15 07:50 | disposition home or self-care (01) ==
LOC: HO.WFDLDS 07:49
PROVIDERS: Visit Provider Internal Medicine
DX: E78.00 Pure hypercholesterolemia, unspecified (principal)
CPT/HCPCS: 36415; 80061; 80076

== ENCOUNTER 2025-01-16 11:26 | Outpatient (REF) | payer MEDICARE, SELFPAY ==
[2025-01-16 12:13] LABS: Uric Acid 7.8 mg/dL (3.4-7.0)
== END 2025-01-16 11:27 | disposition home or self-care (01) ==
LOC: HO.LNP 11:26
PROVIDERS: Visit Provider Internal Medicine
DX: M10.9 Gout, unspecified (principal)
CPT/HCPCS: 84550